=== PATIENT | female | born 1985 | race Caucasian/White ===

== ENCOUNTER 2025-06-12 08:03 | Emergency (ER) | payer OTHER, SELFPAY ==
[2025-06-12 08:08] VITALS: BP 139/78; PULSE 102; RESP 20; TEMP 37.1; O2SAT 100
--- OUTSIDE RECORDS SUMMARY | 2025-06-12 08:09 | XMS_ITS | Encounter Summary ---
Author Organization [facility] Address [address] [place] [address] Phone Care Team Providers Care Casual Shoe Inspector Name Role Phone Henry Ha MD Primary Care Provider [phone] Radha Morales APRN, FIRE BATTALION CHIEF Primary Care Provide r Reason for Visit * Reason Comments Medication Refill Encounter Details Date Type Department Care Team (Late st Contact Info) Description 02/12/2021 Refill [facility] - Family Medicine [facility] [address] [place] [address] Henry Ha MD [address] [place] [address] Medication Refill Social History Tobacco Use Types Packs/Day Years Used Date Smoking Tobacco: Never Smokeless Tobacco: Never Alcohol Use Standard Drinks/Week Comments Yes 0 (1 standard drink = 0.6 oz pur e alcohol) Rare PHQ-2 Answer Date Recorded Total Score - Questions 1-9 0 02/09 Sexually Active Control Partners Comments Yes Oral Contraceptive Male Comments No Sex and Gender Information Value Date Recorded Sex Assigned at Not on file Legal Sex Female 7:21 PM CDT Gender Identity Not on file Sexual Orientation Not on file Occupation Industry Job Start Date Job End Date Nurse Not on file Not on file Not on file documented as of this encounter Miscellaneous Notes * Telephone Encounter - Jennifer Ashley RN - 02/13/2021 8:33 AM CDT Medication failed the protocol, provider to review and approve the medication order if appropriate. Requested Prescriptions Pending Prescriptions Disp Refills Tri-Sprintec 0.18/0.215/0.25 MG-35 MCG Tablet [Pharmacy Med Name: TRI-SPRINTEC TABLETS 28S] 28 Tablet 11 Sig: TAKE 1 TABLET BY MOUTH DAILY [facility]ch Not Delegated - FACULTY RESEARCH ASSISTANT: Contraceptives Failed - 02/12/2021 7:17 PM Failed - This refill cannot be delegated Passed - Valid encounter within last 12 months Past Office Visits Recent Outpatient Visits 11 months ago Visit for annual health examination (Adult) [facility] - Henry Garcia MD 1 year ago Strep throat [facility] Henry Perez MD 2 years ago Well woman exam [facility] - Henry Garcia MD Upcoming Appointments MANAGER FLOAT - Recent and Past Visits Recent Visits Date Type Provider Dept 02/29/20 Office Visit Henry Ha MD [facility] Ra Showing recent visits within past 460 days with a meds authorizing provider and meeting all other requirements Future Appointments No visits were found meeting these conditions. Showing future appointments within next 90 days with a meds authorizing provider and meeting all other requirements Passed - Last BP in normal range BP Readings from Last 1 Encounters: 02/29/20 108/62 documented in this encounter Plan of Treatment Upcoming Encounters Date Type Department Care Team (Late st Contact Info) Description 04/19/2026 9:40 AM CDT [facility] [address] [place] [address] Radha Morales, PHOTOGRAPHIC EQUIPMENT MECHANIC, FIRE BATTALION CHIEF [address] [place] [address] documented as of this encounter Visit Diagnoses Diagnosis Acne, unspecified acne type documented in this encounter Additional Health Concerns Assessment Noted Time PHQ-9 Depression Total Score: 0 02/29/20 20 8:00 AM CDT documented as of this encounter Care Teams Casual Shoe Inspector Relationship Specialty Start Date End Date Henry Ha MD PCP - General Family Medicine 11/05/18 02/01/25 Radha Morales, PHOTOGRAPHIC EQUIPMENT MECHANIC, FIRE BATTALION CHIEF [address] [place] [address] PCP - General Advanced Practice Nurse 04/14/25 documented as of this encounter
--- OUTSIDE RECORDS SUMMARY | 2025-06-12 08:09 | XMS_ITS | Encounter Summary ---
Author Organization [facility] Address [address] [place] [address] Phone Care Team Providers Care Guide Tour Name Role Phone Radha Morales APRN, CNP Primary Care Provide r Encounter Details Date Type Department Care Team (Late st Contact Info) Description 04/29/2025 Results Follow-Up [facility] - Family Medicine - [place] [address] [place] [address] Radha Morales APRN, PRODUCTION EDITOR [address] [place] [address] HEPATITIS C ANTIBODY, LIPID PANEL, CMP (COMPREHENSIVE METABOLIC PANEL), Additional followed-up results: 4 Social History Tobacco Use Types Packs/Day Years Used Date Smoking Tobacco: Never Smokeless Tobacco: Never Alcohol Use Standard Drinks/Week Comments Yes 0 (1 standard drink = 0.6 oz pur e alcohol) Rare PHQ-2 Answer Date Recorded Total Score - Questions 1-9 0 12/2024 AUDIT-C Answer Date Recorded Q1: How often do you have a drink containing alc ohol? Never 04/15/2025 Average Number of Drinks Not on file 025 Frequency of Binge Drinking Not on file 12/2024 Education Answer Date Recorded What is the highest level of school you have completed or the highest degree you have received? 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 Not on file documented as of this encounter Plan of Treatment Upcoming Encounters Date Type Department Care Team (Late st Contact Info) Description 04/19/2026 9:40 AM CDT Office Visit [facility] [address] [place] [address] Radha Morales APRN, PRODUCTION EDITOR [address] [facility] [place] [address] documented as of this encounter Visit Diagnoses Not on filedocumented in this encounter Additional Health Concerns Assessment Noted Time PHQ-9 Depression Total Score: 0 04/15/20 10:34 AM CDT documented as of this encounter Care Teams Guide Tour Relationship Specialty Start Date End Date Radha Morales APRN, PRODUCTION EDITOR [address] [facility] [address] PCP - General Advanced Practice Nurse 04/14/25 documented as of this encounter
--- OUTSIDE RECORDS SUMMARY | 2025-06-12 08:09 | XMS_ITS | Encounter Summary ---
Author Organization [facility] Address [address] [place] [address] Phone Care Team Providers Care Display Specialist Name Role Phone Radha Morales APRN, ED Primary Care Provide r Encounter Details Date Type Department Care Team (Late st Contact Info) Description 04/15/2025 Results Follow-Up [facility] - Family Medicine [facility] [address] [place] [address] Radha Morales APRN, ASSISTANT LABORATORY DIRECTOR [address] [place] [address] CHRISTINA SCREENING DEBORAH W IMPL DIGITAL W CAD W AGUSTINA Social History Tobacco Use Types Packs/Day Years [...] on file documented as of this encounter Functional Status * Question Answer Date of Assessment Author Little interest or pleasure in doing things Not at all 04/15/2025 10:34 AM CDT DerikNovember Feeling down, depressed, or hopeless Not at all 12/2024 10:34 AM CDT DerikNovember * Over the past 2 weeks, how often have you been bothered by any of the following problems? Question Answer Date of Assessment Author Patient Health Questionnaire-2 Score 0 12/2024 10:34 AM CDT MoreNovember documented as of this encounter Plan of Treatment Upcoming Encounters Date Type Department Care Team (Late st Contact Info) Description 04/19/2026 9:40 AM CDT Office Visit [facility] - Family Medicine [facility] [address] [place] [address] Radha Morales, IMPLEMENTATION ANALYST, ASSISTANT LABORATORY DIRECTOR [address] [place] [address] documented as of this encounter Visit Diagnoses Not on filedocumented in this encounter Additional Health Concerns Assessment Noted Time PHQ-9 Depression Total Score: 0 04/15/20 10:34 AM CDT documented as of this encounter Care Teams Display Specialist Relationship Specialty Start Date End Date Radha Morales APRN, ASSISTANT LABORATORY DIRECTOR [address] [place] [address] PCP - General Advanced Practice Nurse 04/14/25 documented as of this encounter
--- OUTSIDE RECORDS SUMMARY | 2025-06-12 08:09 | XMS_ITS | Clinical Summary ---
Author Organization [facility] Address [address] [place] [address] Care Team Providers Care Receiving Clerk Name Role Phone Unknown, Provider Primary Care Provider Unavaila ble Source Comments [facility],non-owned Affiliates and Associated Physician Practices is amultiple site organization consisting of ambulatory clinics and hospital sitesin [place], [place], [place] and [place]. This disclosure is being madepursuant to the Care Everywhere program and may not contain all information available regarding this patient. Last updated 18.[facility] Allergies Active Allergy Reactions Criticality Noted Date Comments Sulfa Drugs Itching,Urticaria High 08/30/2014 Was told that as an she had an allergic reaction Medications * Be aware that medications may not be up to date on this document. Alwaysverify current medications with the patient. influenza vac types a & b pf (FLUVIRIN PRESERVATIVE FREE) 0.5 ML injection ADM 0.5ML IM UTD 7 Active Aolifzql-Gtz-Yf- FA (PRE- FORMULA) TABS Active sertraline (ZOLOFT) 50 MG tablet 8 Active ibuprofen (MOTRIN) 600 MG tablet Take 1 tablet by mouth every 6 hours as needed for Pain 50 tablet 8 Active Additional Information Patient not taking.Reported on 01/26/2019 norgestim-eth estrad triphasic (TRI-SPRINTEC) tablet Take 1 tablet by mouth once daily 1 packet 11 9 Active Active Problems Problem Noted Date Diagnosed Date Pap smear for cervical cancer screening 02/27/20 18 Overview (02/23/2019): Desires Nexplanon History of miscarriage 09/14/2014 Overview (12/25/2017): Overview: s/p D&C 08/2014 Resolved Problems Problem Noted Date Diagnosed Date Resolved Date (normal spontaneous vaginal delivery) 02/26/2018 01/26/2019 Supervision of normal pregna ncy in third trimester 12/11/2017 02/26/2018 Depression affecting 12/11/2017 01/26/2019 Elevated glucose level 11/06/201702/26 Overview (12/25/2017): Overview: Passed GTT Short interval between pregn ancies affecting in first trimester, antepartum 07/17/2017 02/26/2018 Supervision of normal pregna ncy in second trimester 06/20/2017 02/26/2018 Overview (01/01/2018): Overview: Dated per 8 wk US O+ antibody screen neg Hgb: 12.9 plt 271 RPR neg Hep B neg Rubella immune Pap normal Chl/liudmlia neg/neg Urine cx: neg SS in process GBS Neg (spontaneous vaginal delivery) 01/01/2018 care following vaginal delivery 01/01/2018 Immunizations Immunization Administration Dates Next Due INFLUENZA VACCINE, TRIV. (AF LURIA, FLUZONE TRIVALENT; 6MO+) (IIV3) 05/11/2018 Covid [employer] primary monoval ent 12+ yr 0.3mL Purple cap 08/29/2020,08/08/2020 DTP 01/23/1999, 0,07/07/1986,1985,04/14/1986,1985,1985,1 08/25/1984 FLU VACCINE TRI IIV3 SPLIT P F IM (FLUVIRIN) 07/01/2017 HEP B VACCINE, PED/ADOL 02/24/2002,10/21/2001, INFLUENZA VACCINE 05/11/2018,05/11/2016 MMR 03/13/1993,10/11/1986 POLIO OPV 03/13/1990, 7,04/14/1986,1985,1985 TDAP (7yrs+) 11/06/2017,08/14/2016 Family History Medical History Relation Name Comments Cancer - Breast Mother lumpectomy Relation Name Status Comments Mother Social History Tobacco Use Types Packs/Day Years Used Date Smoking Tobacco: Never Smokeless Tobacco: Never Alcohol Use Standard Drinks/Week Comments No 0 (1 standard drink = 0.6 oz pur e alcohol) Comments No Sex and Gender Information Value Date Recorded Sex Assigned at Not on file Legal Sex Female 11:43 AM TAXATION ECONOMIST Gender Identity Not on file Sexual Orientation Not on file Last Filed Vital Signs Vital Sign Reading Time Taken Comments Blood Pressure 120/70 01/26/2019 3:07 PM CDT Pulse 72 01/18/2018 3:45 PM CDT Temperature 36.7 C (98.1 F) 01/18/2018 3:45 PM CDT Respiratory Rate 16 01/18/2018 3:45 PM CDT Oxygen Saturation 99% 01/17/2018 2:22 PM CDT Inhaled Oxygen Concentration - - Weight 98 kg (216 lb) 01/26/2019 3:07 PM CDT Height 167.6 cm (5' 6) 01/26/2019 3:07 PM CDT Body Mass Index 34.86 01/26/2019 3:07 PM CDT Plan of Treatment Health Maintenance Due Date Last Done Comments LIPID TESTING 1985 MAMMOGRAM 1985 HEPATITIS C SCREENING 03/27/2003 HPV VACCINE (1 - 3-dose SCDM series) 2012 DEPRESSION SCREENING 08/11/2024 COVID-19 VACCINE ( season) 2025 08/29/2020, 08/08/2020 INFLUENZA VACCINE (#1) 2025 8, 05/11/2018, 07/01/2017, Additional history exists DTAP/TDAP/TD VACCINES (9 - Td or Tdap) 11/07/2027 11/06/2017, 08/14/2016, 01/23/1999, Additional history exists ZOSTER VACCINE (1 of 2) 2035 HEPATITIS B VACCINE Completed 02/24/2002, 10/21/2001, 09/14/2001 HIV SCREENING Completed 07/10/2017, 03/04/2016 HIB VACCINE Aged Out No longer eligi ble based on patient's age to complete this topic MENINGOCOCCAL (Group B) VACCINE SHARED DECISION-MAKING Aged Out No longer eligible based on patient's age to complete this topic MENINGOCOCCAL GROUPS A/C/Y/W VACCINE Aged Out No longer eligible based on patient's age to complete this topic PNEUMOCOCCAL VACCINE Aged Out No long er eligible based on patient's age to complete this topic Procedures Procedure Name Priority Date/Time Associated Diagnosis Comments HIV-1 HIV-2 ANTIBODY W REFLX Routine 07/10/2017 8:56 AM TAXATION ECONOMIST from Last 3 Months or Most Recently Relevant to Health Maintenance Results * HIV-1 HIV-2 ANTIBODY W REFLX (07/10/2017 8:56 AM TAXATION ECONOMIST) HIV 1 Antibody Negative Negative [facility] ([facility]) HIV-2 Antibody Negative Negative [facility] ([facility]) Interpretation [facility] ([facility]) Comment: Negative for HIV-1 and HIV-2 antibodies See RNA Reflex. Blood specimen (specimen) BLOOD SPECIMEN / Unknown 07/10/2017 8:56 AM TAXATION ECONOMIST 07/10/2017 Narrative [facility] ([facility]) - 07/15/2017 7:12 AM TAXATION ECONOMIST Performed at: [facility] [address] [place], [place] [id number] Aquarist: Ranjan Moseley PhD, Phone: [phone] Carmela Jhaveri CHEMICAL EQUIPMENT REPAIRER-[facility] - SEROLOGY ORDERAB LES Final Result [facility] ([facility]) [address] [place] [address], [facility] from Last 3 Months or Most Recently Relevant to Health Maintenance Insurance ANTHEM Advance Directives * Full Code (Latest Code Status on File) Date Activated Date Inactivated Comments 01/17/2018 11:24 AM 01/18/2018 9:28 PM * Full Code Date Activated Date Inactivated Comments 01/17/2018 11:04 AM 01/17/2018 11:24 AM * Full Code Date Activated Date Inactivated Comments 11/01/2016 9:17 AM 11/02/2016 2:43 PM * Full Code Date Activated Date Inactivated Comments 11/01/2016 4:03 AM 11/01/2016 9:17 AM * Full Code Date Activated Date Inactivated Comments 07/16/2016 5:50 PM 07/16/2016 7:03 PM Care Teams Receiving Clerk Relationship Specialty Start Date End Date Unknown, Provider PCP - General 11/24/17
--- OUTSIDE RECORDS SUMMARY | 2025-06-12 08:09 | XMS_ITS | Clinical Summary ---
Author Organization [facility] Address [address] [place] [address] Phone Care Team Providers Care Program Professional Name Role Phone Radha Morales APRN, CNP Primary Care Provide r Allergies Active Allergy Reactions Criticality Noted Date Comments Sulfa Antibiotics Hives,Itching High 08/30/2014 Was told that as an she had an allergic reaction Medications No known medications Active Problems Problem Noted Date Diagnosed Date Acne 02/29/2020 Visit for annual health examination (Adult) 02/09 Pap smear for cervical cancer screening 11/06/19 Well woman exam 11/05/2018 History of miscarriage 09/14/2014 Overview (11/05/2018): s/p D&C 08/2014 Resolved Problems Problem Noted Date Diagnosed Date Resolved Date Strep throat 08/03/2019 02/29/2020 (normal spontaneous vaginal delivery) 02/26/2018 11/05/2018 Depression affecting 12/11/2017 11/05/2018 Encounters Date Type Department Care Team Description 04/29/2025 Results Follow-Up [facility] - Family Medicine - [place] [address] [phone] Radha Morales APRN, CNP HEPATITIS C ANTIBODY, LIPID PANEL, CMP (COMPREHENSIVE METABOLIC PANEL), Additional followed-up results: 4 04/27/2025 8:40 AM CDT Lab [facility] [address] [address] Lab, [place] Lab/Ancillary Encounter for well adult exam without abnormal findings; Encounter for hepatitis C screening test for low risk patient; Screening for lipid disorders; Screening for diabetes mellitus; Family history of high cholesterol Discharge Disposition: Discharged to home or Selfcare 04/27/2025 Travel 04/15/2025 10:40 AM CDT Office Visit [facility] [place] [address] Radha Morales, BOTTLED BEVERAGE INSPECTOR, AGRICULTURAL TECHNICAL OFFICER Encounter for well adult exam without abnormal findings (Primary Dx); Adult BMI 34.0-34.9 kg/sq m; Screening for diabetes mellitus; Family history of diabetes mellitus; Screening for lipid disorders; Encounter for hepatitis C screening test for low risk patient; Need for COVID-19 vaccine; Sleep disturbance; Family history of high cholesterol Discharge Disposition: Discharged to home or Selfcare 04/15/2025 Results Follow-Up [facility] [address] [place] [address] Radha Morales, BOTTLED BEVERAGE INSPECTOR, AGRICULTURAL TECHNICAL OFFICER CHRISTINA SCREENING DEBORAH W IMPL DIGITAL W CAD W AGUSTINA 04/14/2025 12:16 PM CDT - 04/14/2025 11:59 PM CDT Hospital Encounter [facility] Mammography [address] [place] [address] Mammo Self Referred, [facility] Discharge Disposition: Discharged to home or Selfcare 04/14/2025 Travel 04/12/2025 Telephone [facility] [address] [place] [address] Radha Morales, BOTTLED BEVERAGE INSPECTOR, AGRICULTURAL TECHNICAL OFFICER from Last 3 Months Immunizations Immunization Administration Dates Next Due DTP Vaccine 01/23/1999, 0,07/07/1986,1985,04/14/1986,1985,1985,1 08/25/1984 Hepatitis B Vaccine, Pediatric/adolescent 02/24/2002,10/21/2001,09/14/2001 Hib Vaccine,unspecified Formulation 07/16/1988 Influenza Vaccine 07/01/2017 Influenza Vaccine greater than 3 yrs 05/11/2018 Influenza Vaccine,unspecifie d Formulation 05/11/2016 Influenza, Seasonal, Injecta ble, Undefined 05/11/2018 Influenza,Split Virus,Trivalent,Injectable,PF 06/21/2024 MMR Vaccine 03/13/1993,10/11/1986 OPV 03/13/1990, 7,04/14/1986,1985,1985 TDAP Vaccine 11/06/2017,08/11/2016 Family History Medical History Relation Name Comments No Known Problems Brother No Known Problems Father No Known Problems Maternal Grandfather No Known Problems Maternal Grandmother Breast Cancer Mother Hypertension Mother No Known Problems Paternal Grandfather Diabetes Paternal Grandmother High Cholesterol Sister 1 No Known Problems Sister 2 Relation Name Status Comments Brother Alive Father Alive Maternal Grandfather Alive Maternal Grandmother Alive Mother Alive Paternal Grandfather Paternal Grandmother Sister 1 Alive Sister 2 Alive Social History Tobacco Use Types Packs/Day Years Used Date Smoking Tobacco: Never Smokeless Tobacco: Never Tobacco Cessation:Counseling Given: Yes Alcohol Use Standard Drinks/Week Comments Yes 0 [...] file Not on file Not on file Last Filed Vital Signs Vital Sign Reading Time Taken Comments Blood Pressure 116/84 04/15/2025 10:35 AM CDT Pulse 81 04/15/2025 10:35 AM CDT Temperature 36.5 C (97.7 F) 04/15/2025 10:35 AM CDT Respiratory Rate 12 04/15/2025 10:35 AM CDT Oxygen Saturation 98% 04/15/2025 10:35 AM CDT Inhaled Oxygen Concentration - - Weight 96.8 kg (213 lb 4.8 oz) 04/15/2025 10:35 AM CDT Height 167.6 cm (5' 6) 04/15/2025 10:35 AM CDT Body Mass Index 34.43 04/15/2025 10:35 AM CDT Plan of Treatment Upcoming Encounters Date Type Department Care Team (Late st Contact Info) Description 04/19/2026 9:40 AM CDT Office Visit [facility] - Family Medicine [facility] [address] [place] [address] Radha Morales, BOTTLED BEVERAGE INSPECTOR, AGRICULTURAL TECHNICAL OFFICER [address] [place] [address] Health Maintenance Due Date Last Done Comments Influenza Immunization (#1) 04/11/202506/11, 05/11/2018, 05/11/2018, Additional history exists SARS-COV-2 Immunization ( season) 2025 06/01/2021, 08/29/2020, 08/08/2020 Pap Smear 11/07/2025 11/07/2022, 11/05/2018 Mammogram 04/14/2026 04/14/2025 Human Papillomavirus (HPV) Immunization (1 - 3-dose SCDM series) 04/15/2026 Postponed from 2012 (Patient Temporarily Declines) DTaP/Tdap/Td Immunization (9 - Td or Tdap) 11/07/2027 11/06/2017, 08/11/2016, 01/23/1999, Additional history exists Td Immunization Every 10 Years (Adults With 1 Tdap) 11/07/2027 11/06/2017, 08/11/2016 Cervical Cancer Screening (CCS) 11/08/2027 HPV/Cotest 11/08/2027 11/07/2022 Respiratory Syncytial Virus (RSV) Immunization (Adult) (1 - 1-dose 75+ series) 2060 Hepatitis B Immunization Completed 002, 10/21/2001, 09/14/2001 Discussion re Starting/Frequency of Mammograms Completed 04/14/2025 Hepatitis C Virus (HCV) Screening Completed 04/27/2025 Meningococcal Immunization (ACWY) Aged Out No longer eligible b ased on patient's age to complete this topic Pneumococcal Immunization Combined Aged Out No longer eligible b ased on patient's age to complete this topic Rotavirus Immunization Aged Out No lo nger eligible based on patient's age to complete this topic Procedures Procedure Name Priority Date/Time Associated Diagnosis Comments CBC WITH AUTO DIFFERENTIAL Routine 04/27/2025 9:01 AM CDT Encounter for well adult exam without abnormal findings APOLIPOPROTEIN B, SERUM, GONZALEZ APOLB Routine 04/27/2025 9:01 AM CDT Screening for lipid disorders Family history of high cholesterol LIPOPROTEIN (A) Routine 04/27/2025 9:01 AM CDT Screening for lipid disorders Family history of high cholesterol HEMOGLOBIN A1C W/ ESTIMATED GLUCOSE Routine 04/27/2025 9:01 AM CDT Encounter for well adult exam without abnormal findings Screening for diabetes mellitus CMP (COMPREHENSIVE METABOLIC PANEL) Routine 04/27/2025 9:01 AM CDT Encounter for well adult exam without abnormal findings COMPLETE BLOOD COUNT (CBC) WITH DIFF Routine 04/27/2025 9:01 AM CDT Encounter for well adult exam without abnormal findings LIPID PANEL Routine 04/27/2025 9:01 AM CDT Encounter for well adult exam without abnormal findings Screening for lipid disorders HEPATITIS C ANTIBODY Routine 04/27/2025 9:01 AM CDT Encounter for well adult exam without abnormal findings Encounter for hepatitis C screening test for low risk patient CHRISTINA SCREENING DEBORAH W IMPL DIGITAL W CAD W AGUSTINA Routine 04/14/2025 12:58 PM CDT Visit for screening mammogram HUMAN PAPILLOMA VIRUS (HPV) Routine 11/07/2022 11:37 AM CDT Encounter for screening for human papillomavirus (HPV) PATHOLOGY CYTOLOGY ACTIVE DIRECTORY SPECIALIST Routine 11:37 AM CDT Encounter for gynecological examination without abnormal finding Screening for malignant neoplasm of cervix from Last 3 Months or Most Recently Relevant to Health Maintenance Results * HEMOGLOBIN A1C W/ ESTIMATED GLUCOSE (04/27/2025 9:01 AM CDT) HGB-A1C 4.8 4.0 - 6.0 % 04/27/2025 1:14 PM CDT [facility] Est Average Glucose 91.1 mg/dL 04/27/2025 1:14 PM CDT [facility] Blood Venipuncture / Unknown 04/27/2025 9:01 AM CDT 04/27/2025 9:01 AM CDT Narrative [facility] - 04/27/2025 1:14 PM CDT HEMOGLOBIN A1C: DIABETIC PATIENTS: WELL-CONTROLLED: 6.2 - 7.0 INTERMEDIATE WELL-CONTROLLED: 7.0 - 9.0 POORLY-CONTROLLED: >9.0 Specimens containing greater than 5% of Hemoglobin F may result in lower than expected % HbA1C results. Radha Morales APRN, AGRICULTURAL TECHNICAL OFFICER CHEMISTRY ORDERABLES Final Result [facility] [address] [place] [address] * (ABNORMAL) APOLIPOPROTEIN B, SERUM, GONZALEZ APOLB (04/27/2025 9:01 AM CDT) APOLB, APOLIPOPROTEIN B,S 21(L) mg/dL 04/29/2025 1:38 PM CDT [facility] Comment: Extremely low ApoB may indicate an underlying genetic disorder such as abetalipoproteinemia. REFERENCE VALUE Desirable: <90 Above Desirable: 90-99 Borderline high: 100-119 High: 120-139 Very high: > or = 140 Test Performed by: [address] [address] [address] Magistrate: Kimmie Lara Ph.D.; CLIA# [id number] Blood Venipuncture / Unknown 04/27/2025 9:01 AM CDT 04/27/2025 9:01 AM CDT Radha Morales APRN, CNP LAB SEND OUTS Final Result [facility] [place] * CBC WITH AUTO DIFFERENTIAL (04/27/2025 9:01 AM CDT) WBC 7.39 4.00 - 12.00 10(3)/mcL 04/27/2025 12:36 PM CDT [facility] RBC 4.61 3.80 - 5.30 10(6)/[facility] 04/27/2025 12:36 PM CDT [facility] HEMOGLOBIN (HGB) 13.1 12.0 - 15.8 g/dL 04/27/2025 12:36 PM CDT [facility] HEMATOCRIT (HCT) 39.0 36.0 - 47.0 % 04/27/2025 12:36 PM CDT [facility] MCV 84.6 82.0 - 96.0 fL 04/27/2025 12:36 PM CDT [facility] MCH 28.4 26.0 - 34.0 pg 04/27/2025 12:36 PM CDT [facility] MCHC 33.6 31.0 - 36.0 g/dL 04/27/2025 12:36 PM CDT [facility] PLATELET COUNT 328 140 - 440 10(3)/[facility] 04/27/2025 12:36 PM CDT [facility] RDW 12.6 11.8 - 15.5 % 04/27/2025 12:36 PM CDT [facility] MPV 10.1 9.7 - 12.4 fL 04/27/2025 12:36 PM CDT [facility] NEUTROPHILS 64.6 47.0 - 73.0 % 04/27/2025 12:36 PM CDT [facility] LYMPHOCYTES 24.2 18.0 - 42.0 % 04/27/2025 12:36 PM CDT [facility] MONOCYTES 6.1 4.0 - 12.0 % 04/27/2025 12:36 PM CDT [facility] EOSINOPHILS 3.8 0.0 - 5.0 % 04/27/2025 12:36 PM CDT [facility] BASOPHILS 0.9 0.0 - 1.0 % 04/27/2025 12:36 PM CDT [facility] IMMATURE GRANULOCYTE 0.4 0.0 - 0.4 % 04/27/2025 12:36 PM CDT [facility] ABSOLUTE NEUTROPHILS 4.77 1.60 - 7.70 10(3)/[facility] 04/27/2025 12:36 PM CDT [facility] ABSOLUTE LYMPHOCYTES 1.79 1.30 - 3.20 10(3)/[facility] 04/27/2025 12:36 PM CDT [facility] ABSOLUTE MONOCYTES 0.45 0.20 - 1.00 10(3)/[facility] 04/27/2025 12:36 PM CDT [facility] ABSOLUTE EOSINOPHIL 0.28 0.00 - 0.40 10(3)/[facility] 04/27/2025 12:36 PM CDT [facility] ABSOLUTE BASOPHILS 0.07 0.00 - 0.10 10(3)/[facility] 04/27/2025 12:36 PM CDT [facility] ABSOLUTE IMMATURE GRANULOCYTE 0.03 0.00 - 0.03 10 (3) mcL. 04/27/2025 12:36 PM CDT [facility] NRBC PER 100 WBC 0 09/17/20 25 12:36 PM CDT [facility] Blood Venipuncture / Unknown 04/27/2025 9:01 AM CDT 04/27/2025 9:01 AM CDT Radha Morales BOTTLED BEVERAGE INSPECTOR, AGRICULTURAL TECHNICAL OFFICER HEMATOLOGY ORDERABLES Final Result [facility] [address] [place] [address] * LIPOPROTEIN (A) (04/27/2025 9:01 AM CDT) LIPOPROTEIN(a) 10 <31 mg/dL 04/27/2025 10:19 PM CDT [facility] Blood Venipuncture / Unknown 04/27/2025 9:01 AM CDT 04/27/2025 9:01 AM CDT Radha Morales APRN, AGRICULTURAL TECHNICAL OFFICER CHEMISTRY ORDERABLES Final Result [facility] [address] [place] [address], * (ABNORMAL) LIPID PANEL (04/27/2025 9:01 AM CDT) CHOLESTEROL 89 <200 mg/dL 04/27/2025 1:23 PM CDT [facility] TRIGLYCERIDES 26 <150 mg/dL 04/27/2025 1:23 PM CDT [facility] HDL CHOLESTEROL 61 >40 mg/dL 1:23 PM CDT [facility] LDL 23 <130 mg/dL 04/27/2025 1:23 PM CDT [facility] VLDL 5(L) 10 - 50 mg/dL 04/27/2025 1:23 PM CDT [facility] CHOL/HDL RATIO 1.5 0.0 - 4.4 04/27/2025 1:23 PM CDT [facility] NON-HDL CHOLESTEROL 28 <130 mg/dL 04/27/2025 1:23 PM CDT [facility] IS THE PATIENT REQUIRED TO BE FASTING? Yes 04/27/2025 1:23 PM CDT [facility] HAS THE PATIENT BEEN FASTING? Yes 04/27/2025 1:23 PM CDT [facility] Blood Venipuncture / Unknown 04/27/2025 9:01 AM CDT 04/27/2025 9:01 AM CDT Radha Morales APRN, AGRICULTURAL TECHNICAL OFFICER CHEMISTRY ORDERABLES Final Result [facility] [address] [facility] [place] [address] * HEPATITIS C ANTIBODY (04/27/2025 9:01 AM CDT) hepatitis C antibody 0.07 <1 S/CO 04/27/2025 10:33 PM CDT [facility] Comment: Signal/Cutoff ratio < 0.79 is Nondetected Signal/Cutoff ratio 0.80-0.99 is Grayzone Signal/Cutoff ratio > 0.99 is Detected Supplemental assays are recommended if signal/cutoff ratio is >/=1.00. Signal/cutoff ratio result >/= 5.00 is 97% predictive of positivity for recombinant immunoblot assay (RIBA) and will be reported to the [place] Department of Public Health as required. Blood Venipuncture / Unknown 04/27/2025 9:01 AM CDT 04/27/2025 9:01 AM CDT Radha Morales BOTTLED BEVERAGE INSPECTOR, AGRICULTURAL TECHNICAL OFFICER CHEMISTRY ORDERABLES Final Result [facility] [address] [place] [address], [place] * (ABNORMAL) CMP (COMPREHENSIVE METABOLIC PANEL) (04/27/2025 9:01 AM CDT) SODIUM 139 136 - 145 mmol/L 04/27/2025 1:23 PM CDT [facility] POTASSIUM 3.9 3.5 - 5.1 mmol/L 04/27/2025 1:23 PM CDT [facility] CHLORIDE 106 98 - 107 mmol/L 04/27/2025 1:23 PM T [facility] CO2, VENOUS 23 22 - 30 mmol/L 04/27/2025 1:23 PM CDT [facility] ANION GAP 13.9 <18.0 mmol/L 04/27/2025 1:23 PM CDT [facility] GLUCOSE 90 70 - 99 mg/dL 04/27/2025 1:23 PM T [facility] BUN 8 5 - 18 mg/dL 04/27/2025 1:23 PM T [facility] CREATININE, BLOOD 0.58(L) 0.60 - 1.00 mg/dL 04/27/2025 1:23 PM CDT [facility] BUN/CREATININE RATIO 14 12 - 20 ratio 04/27/2025 1:23 PM T [facility] TOTAL PROTEIN 6.8 6.0 - 8.0 g/dL 04/27/2025 1:23 PM T [facility] ALBUMIN 4.4 3.5 - 5.0 g/dL 04/27/2025 1:23 PM T [facility] A/G RATIO 1.8 1.0 - 2.2 04/27/2025 1:23 PM CDT [facility] CALCIUM 9.0 8.7 - 10.5 mg/dL 04/27/2025 1:23 PM T [facility] T BILI 1.5(H) 0.2 - 1.2 mg/dL 04/27/2025 1:23 PM CDT [facility] SGOT (AST) 20 <43 U/L 04/27/2025 1:23 PM CDT [facility] SGPT (ALT) 20 <56 U/L 04/27/2025 1:23 PM CDT [facility] ALKALINE PHOSPHATASE 60 40 - 150 U/L 04/27/2025 1:23 PM CDT [facility] IS THE PATIENT REQUIRED TO BE FASTING? No 04/27/2025 1:23 PM CDT [facility] GFR, ESTIMATED >60 >=60 04/27/2025 1:23 PM CDT [facility] Comment: Creatinine Clearance is the preferred criteria for selecting drug dose adjustments in renally impaired patients. The GFR is provided as additional pertinent clinical information. GFR is reported in mL/min/1.73 sq m. Calculation based on the 2020 Chronic Kidney Disease Epidemiology Collaboration (CKD-EPI) equation refit without adjustment for race. GFR, EST. >60 >=60 025 1:23 PM CDT [facility] Comment: Creatinine Clearance is the preferred criteria for selecting drug dose adjustments in renally impaired patients. The GFR is provided as additional pertinent clinical information. GFR is reported in mL/min/1.73 sq m. Calculation based on the 2009 Chronic Kidney Disease Epidemiology Collaboration (CKD-EPI). GFR, EST. NONAFRICAN >60 >=60 04/27/2025 1:23 PM CDT [facility] Comment: Creatinine Clearance is the preferred criteria for selecting drug dose adjustments in renally impaired patients. The GFR is provided as additional pertinent clinical information. GFR is reported in mL/min/1.73 sq m. Calculation based on the 2009 Chronic Kidney Disease Epidemiology Collaboration (CKD-EPI). Blood Venipuncture / Unknown 04/27/2025 9:01 AM CDT 04/27/2025 9:01 AM CDT us Radha Morales BOTTLED BEVERAGE INSPECTOR, AGRICULTURAL TECHNICAL OFFICER CHEMISTRY ORDERABLES Final Result [facility] [address] [place] [address] * CHRISTINA SCREENING DEBORAH W IMPL DIGITAL W CAD W GAUSTINA (04/14/2025 12:58 PM CDT) Anatomical Region Laterality Modality breast Bilateral Mammography 04/14/2025 12:5 8 PM CDT Impressions 04/14/2025 1:18 PM CDT IMPRESSION: No mammographic evidence of malignancy. RECOMMENDATION: If there is no interval change in the clinical breast examination, the patient can return in one year for annual screening mammography. Narrative 04/14/2025 1:18 PM CDT Exam: [facility] SCREENING DEBORAH W IMPL DIGITAL W CAD W AGUSTINA. Direct digital imaging using CAD. Tomosynthesis images were obtained and reviewed. Clinical History: Screening. No current complaints. Comparison: None. Baseline. Technique: Two standard digital views of both breasts were performed and reviewed with the aid of R2 CAD. Tomosynthesis images were obtained and reviewed. Findings: The breasts are heterogeneously dense, which may obscure masses. Bilateral retropectoral silicone implants. There are no suspicious masses, microcalcifications or areas of nonsurgical architectural distortion. BIRADS 2: Benign Procedure Note Ildefonso Tabor MD - 04/14/2025 Exam: [facility] SCREENING DEBORAH W IMPL DIGITAL W CAD W AGUSTINA. Direct digitalimaging using CAD. Tomosynthesis images were obtained and reviewed. Clinical History: Screening. No current complaints. Comparison: None. Baseline. Technique: Two standard digital views of both breasts were performed andreviewed with the aid of R2 CAD. Tomosynthesis images were obtained andreviewed. Findings: The breasts are heterogeneously dense, which may obscure masses. Bilateral retropectoral silicone implants. There are no suspicious masses, microcalcifications or areas ofnonsurgical architectural distortion. BIRADS 2: Benign IMPRESSION: No mammographic evidence of malignancy. RECOMMENDATION: If there is no interval change in the clinical breastexamination, the patient can return in one year for annual screeningmammography. us Radha Morales APRN, ED IMG MAMMO ORDERABLES Final Result * PATHOLOGY CYTOLOGY ACTIVE DIRECTORY SPECIALIST (11/07/2022 11:37 AM CDT) SPECIMEN ADEQUACY Satisfactory for evaluation. Endocervical/transf ormation zone component is present. 11/18/2022 4:02 PM CDT [facility] DESCRIPTIVE DIAGNOSIS NEGATIVE FOR INTRAEPITHELIAL LESIONS OR MALIGNANCY. 11/18/2022 4:02 PM CDT [facility] at 1602 CDT Automated Examination Analysis of this sample has been assisted by an automated imaging and review system ([employer] System, [employer], [place], [place]). This case is further evaluated and finalized by a construction coordinator and/or pathologist. 11/18/2022 4:02 PM CDT [facility] Disclaimer The PAP smear is a screening test designed to detect cancerous or precancerous cells of the uterine cervix. It is one of the best means available for detection of cervical cancer but still carries an inherent false-negative rate. The consequences of a false-negative PAP result can be minimized by adhering to current screening guidelines. The following are general guidelines recommended by the ACS, ASCP, ASCCP, and ACOG: PAP testing is recommended every three years for women 21-29, Co-Testing, a PAP test in conjunction with an HPV (Human Papillomavirus) test for women ages 30-65, and no PAP or HPV testing for women under the age of 21 or older than 65 unless clinically indicated. 11/18/2022 4:02 PM CDT [facility] Other CERVIX UTERI STRUCTURE / Unknown Non-Phlebotomy Collection / Unknown 11/07/2022 11:37 AM CDT 11/07/2022 11:37 AM CDT us Henry Ha MD PATHOLOGY/CYTOLOGY ORDERABLES [facility] Result [facility] [address] [place] [address], * HUMAN PAPILLOMA VIRUS (HPV) (11/07/2022 11:37 AM CDT) HPV OTHER HIGH RISK TYPES, PCR NEGATIVE NEGATIVE 11/08/2022 3:28 PM CDT [facility] Comment: The following Other High Risk types were not detected: 31, 33, 35, 39, 45, 51, 52, 56, 58, 59, 66, and 68. A negative high-risk HPV result does not exclude the possibility of future cytologic HSIL or underlying CIN2-3 or cancer. The presence of PCR inhibitors may cause false negative or invalid results. If concentrations of whole blood in the sample exceed 1.5% (dark red or brown coloration) in PreservCyt solution, there is a likelihood of obtaining a false-negative result. HPV TYPE 16 NEGATIVE NEGATIVE 11/08/2022 3:28 PM CDT [facility] Comment: A negative high-risk HPV result does not exclude the possibility of future cytologic HSIL or underlying CIN2-3 or cancer. The presence of PCR inhibitors may cause false negative or invalid results. If concentrations of whole blood in the sample exceed 1.5% (dark red or brown coloration) in PreservCyt solution, there is a likelihood of obtaining a false-negative result. HPV TYPE 18 NEGATIVE NEGATIVE 11/08/2022 3:28 PM CDT [facility] Comment: A negative high-risk HPV result does not exclude the possibility of future cytologic HSIL or underlying CIN2-3 or cancer. The presence of PCR inhibitors may cause false negative or invalid results. If concentrations of whole blood in the sample exceed 1.5% (dark red or brown coloration) in PreservCyt solution, there is a likelihood of obtaining a false-negative result. HPV ORDER BE USED FOR SCREENING OR DIAGNOSTIC SCREENING 11/08/2022 3:28 PM CDT [facility] Other Non-Phlebotomy Collection / Unknown 11/07/2022 11:37 AM CDT 11/07/2022 11:37 AM CDT Narrative [facility] - 11/08/2022 3:28 PM CDT Performed by Real-Time Polymerase Chain Reaction (PCR) on the [employer] 4800. This assay has been validated for use with post-aliquot samples from the [employer] T5000 processor. us Henry Ha MD LAB SEND OUTS Final Result [facility] [address] [place] [address], [facility] [address] [place] [address] from Last 3 Months or Most Recently Relevant to Health Maintenance Insurance [facility] Care Teams Program Professional Relationship Specialty Start Date End Date Radha Morales APRN, AGRICULTURAL TECHNICAL OFFICER [address] [place] [address] PCP - General Advanced Practice Nurse 04/14/25
--- OUTSIDE RECORDS SUMMARY | 2025-06-12 08:09 | XMS_ITS | Clinical Summary ---
Author Organization [facility] Address [address] [place] [address] Care Team Providers Care Talent Coordinator Name Role Phone Naveen Whittaker MD Primary Care Provider + Pari Gallegos DO Unavailable Allergies Active Allergy Reactions Criticality Noted Date Comments Sulfa (Sulfonamide Antibiotics) Hives,Itching,Urticari a High 08/30/2014 Was told that as an infant she had an allergic reaction Medications oxyCODONE-aceta minophen (PERCOCET) 5-325 mg per tabletIndicatio ns:Pain Take 1-2 tablets by mouth every 4 (four) hours as needed for pain 15 tablet 04/08/2023 Active docusate sodium (COLACE) 100 mg capsuleIndicati ons:constipatio n Take 1 capsule (100 mg total) by mouth 2 (two) times a day with a glass of water 60 capsule 04/08/2023 Active Active Problems Problem Noted Date Diagnosed Date Request for sterilization 04/01/2023 Surgical History Surgery Date Site/Laterality Comments DILATION AND CURETTAGE OF UTERUS COMBINED AUGMENTATION MAMMAPLASTY AND ABDOMINOPLASTY Medical History Medical History Date Comments Obesity Social History Tobacco Use Types Packs/Day Years Used Date Smoking Tobacco: Never Smokeless Tobacco: Never Tobacco Cessation:Counseling Given: Not Answered Alcohol Use Standard Drinks/Week Comments Yes 0 (1 standard drink = 0.6 oz pur e alcohol) 1x year AUDIT-C Answer Date Recorded Frequency of Alcohol Consumption Not on file 04/01/2023 Q2: How many drinks containi ng alcohol do you have on a typical day when you are drinking? Patient does not drink Frequency of Binge Drinking Not on file 03/12 Personal Safety Answer Date Recorded Have you ever been in or are you currently in a harmful physical or emotional relationship or is someone making you feel afraid or unsafe? 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 Gender Identity Not on file Sexual Orientation Not on file Occupation Industry Job Start Date Job End Date Not on file Not on file Not on file Not on file Obstetrics History Para Term AB IAB SAB Ectopic Multiple Livin g Live Births 7 6 6 1 6 6 Date Outcome GA Total Labor Labor//3rd Weight Sex Type Anes PTL Bianca A1 A5 Name Clin AB 2005 Term 37w 0d 3.118 kg (6 lb 14 oz) F Vagina l Livin g Complications:None 2006 Term 38w 0d 3.771 kg (8 lb 5 oz) M Vagina l Livin g Complications:None 2008 Term 40w 0d 4.167 kg (9 lb 3 oz) M Vagina l Livin g Complications:None 2009 Term 41w 0d 4.026 kg (8 lb 14 oz) F Vagina l Livin g Complications:None 2016 Term 39w 0d 0h 07m 0h 07m 3.57 kg (7 lb 13.9 oz) M Vag-Sp ont Epidur al Livin g 8 8 BRENDA HINKLEBA BY NEGRITA Chaney MD Complications:None Delivery Location:[facility] 2017 Term 38w 4d 0h 10m 0h 06m/0h 04m 3.97 kg (8 lb 12 oz) F Vag-Sp ont Epidur al N Livin g 7 9 BRENDA HINKLE BA BY NAPOLEON LEWIS CNM Complications:None Delivery Location:[facility] Last Filed Vital Signs Vital Sign Reading Time Taken Comments Blood Pressure 122/74 04/15/2023 9:14 AM CDT Pulse 72 04/08/2023 11:15 AM CDT Temperature 36.2 C (97.2 F) 04/08/2023 11:15 AM CDT Respiratory Rate 18 04/08/2023 11:1 5 AM CDT Oxygen Saturation 98% 04/08/2023 11: 15 AM CDT Inhaled Oxygen Concentration - - Weight 101.7 kg (224 lb 3.2 oz) 04/15/2023 9:14 AM CDT Height 167.6 cm (5' 6) 04/08/2023 6:40 AM CDT Body Mass Index 36.19 04/08/2023 6:40 AM CDT Plan of Treatment Health Maintenance Due Date Last Done Comments Breast Cancer Screening-Mammogram 1985 Cervical Cancer Screening 1985 Depression Screening 1985 Hepatitis C Screening 1985 Varicella Vaccines (1 of 2 - 13+ 2-dose series) 1998 Regular Well Visit/Exam 18-64 2003 HPV Vaccines (1 - 3-dose SCDM series) 2012 Covid-19 Vaccine ( season) 2025 06/01/2021, 08/29/2020, 08/08/2020 Influenza Vaccine (#1) 2025 8, 05/11/2018, 07/01/2017, Additional history exists DTaP/Tdap/Td Vaccine (9 - Td or Tdap) 11/07/2027 11/06/2017, 08/14/2016, 01/23/1999, Additional history exists Hepatitis B Screening Completed 02/24/2002 , 10/21/2001, 09/14/2001 Pneumococcal vaccine <65 Aged Out No longer eligible based on patient's age to complete this topic Medical Devices Implanted Type Area Mica Machine Operator Device Identifier Shelf Expiration Date Model / Serial / Lot [employer] Srf-485 Natrelle Inspira Smooth Shell Surface Full Profile Implant 485cc - [id number] - [id number] Implanted:Qty: 1 on 04/07/2018 by Adrian Koenig MD at [facility] Breast [employer] [id number] 11/03/2022 SRF- 485 / [id number] / [id number] Description:NO CHARGE PROVID ED BY THE SURGEON [employer] Srf-560 Natrelle Inspira Smooth Shell Surface Full Profile Implant 560cc - [id number] - [id number] Implanted:Qty: 1 on 04/07/2018 by Adrian Koenig MD at [facility] Breast [employer] [id number] 12/23/2022 [place] [id number] / [id number] / [id number] Description:NO CHARGE PROVID ED BY THE SURGEON Insurance * Guarantor: ADRY OBANDO Account Type Relation to Patient Date of Phone Billing Address Personal/Family 1985 [address] [facility] ANTH ACCESS CHOICE Advance Directives For more information, please contact: [phone] * Full Code (Latest Code Status on File) Date Activated Date Inactivated Comments 04/07/2018 3:54 PM 04/08/2018 1:37 PM Care Teams Talent Coordinator Relationship Specialty Start Date End Date Naveen Whittaker MD PCP - General 08/05/19 Pari Gallegos DO [address] [place] [address] Consulting Physician Obstetrics and Gynecology 04/08/23
--- OUTSIDE RECORDS SUMMARY | 2025-06-12 08:09 | XMS_ITS | Encounter Summary ---
Author Organization [facility] Healthcare Address [address] [place] [id number] Care Team Providers Care Scalp Treatment Operator Name Role Phone Naveen Whittaker MD Primary Care Provider + Naveen Whittaker MD Primary Care Provider + Pari Gallegos DO Unavailable [phone] Encounter Details Date Type Department Care Team (Late st Contact Info) Description 04/09/2018 Documentation [facility] Case Management [address] [place] [address] Matilde Nogueira RN Social History Tobacco Use Types Packs/Day Years Used Date Smoking Tobacco: Never Smokeless Tobacco: Never Alcohol Use Standard Drinks/Week Comments Yes 0 (1 standard drink = 0.6 oz pur e alcohol) 1x year Comments No Sex and Gender Information Value Date Recorded Sex Assigned at Not on file 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
[2025-06-12 08:17] VITALS: BP 139/78; PULSE 102; RESP 20; TEMP 37.1; O2SAT 100
--- NOTE | 2025-06-12 08:30 | ED_ITS ---
HPI - URI/Sore Throat General Chief Complaint: Upper Respiratory Infection Stated Complaint: Cough Time Seen by Provider: 06/12/25 08:15 Source: patient and RN notes reviewed Mode of arrival: ambulatory Limitations: no limitations History of Present Illness HPI Narrative: 40-year-old female presents Express Care complaining of cough for 2 weeks. Patient said she please see my at a sore throat in the beginning of her symptoms. Hours patient states she primarily has a cough will not go away. Patient reports that is productive at times and nonproductive. Patient says she goes in coughing fits throughout the day, she says it is worse at night when she is lying flat. Patient reports tactile fevers the last couple days as well. Patient denies any body aches, chills, nausea, vomiting, diarrhea, chest pain, shortness of breath, or any other upper respiratory symptoms. Patient is taking bwhp-[id number] cough medicine without relief. Patient does not smoke. Patient denies any significant past medical history. Related Data Allergies Allergy/AdvReac Type Severity Reaction Status Date / Time Sulfa (Sulfonamide Allergy Unknown Unknown Verified 06/12/25 08:13 Antibiotics) Review of Systems Review of Systems: CONSTITUTIONAL: Positive for tactile fevers. Negative for body aches, chills, or sweats. EYES: Denies visual changes, redness, or discharge. ENT: Denies rhinorrhea, congestion, sore throat, or otalgia. CARDIOVASCULAR: Denies chest pain, palpitations, or edema. RESPIRATORY: Positive for cough. Negative for wheezing or dyspnea. GASTROINTESTINAL: Denies abdominal pain, nausea, vomiting, or diarrhea. GENITOURINARY: Denies dysuria or hematuria. SKIN: Denies rash or itching. MUSCULOSKELETAL: Denies back pain, joint pain, or myalgia. NEUROLOGIC: Denies headache, numbness, or weakness. PSYCHIATRIC: Denies anxiety or depression. All other systems reviewed are negative, except as documented in HPI. PMFSH Social History Social History Smoking status: Never smoker Alcohol intake: never Comments At the time of my signature, I reviewed and agree with the nursing past medical, surgical, social, and family history. There is no relevant family history pertinent to the patient complaint. Exam Narrative: GENERAL: This is a well-nourished, well-developed adult, in no apparent distress. They are non ill-appearing, nontoxic appearing. HEAD: normocephalic, atraumatic. EYES: Sclera clear/white. Conjunctiva normal. Vision is grossly intact. Extraocular movements intact EARS: External ears normal, auditory canals clear and without drainage, TMs normal without perforation. Hearing grossly intact. NOSE: External nose normal with no obvious nasal discharge, nasal turbinates erythemic without swelling, no rhinorrhea. THROAT: Mucous membranes moist, posterior pharynx edematous, without erythema, no exudate Uvula midline. Postnasal drip present. NECK: Neck supple, non-tender without lymphadenopathy, masses or thyromegaly. CARDIOVASCULAR: Regular rate and rhythm without murmurs, gallops, or rubs. RESPIRATORY: Clear to auscultation. Breath sounds equal bilaterally. No wheezes, rales, or rhonchi. SKIN: warm, Dry, intact with no suspicious lesions or rash, good texture and turgor. NEURO: awake, alert, and oriented to person, place and time. There were no obv ious focal neurologic abnormalities. EXTREMITIES: No joint tenderness, effusion, or edema noted. BACK: Nontender without deformity. No CVA tenderness. Course Course Emergency Course: Portions of this record may have been created with voice recognition software Level of Care: Express Care Visit Vital Signs Vital signs: Vital Signs Temperature 98.8 F 06/12/25 08:08 Pulse Rate 102 H 06/12/25 08:08 Respiratory Rate 20 06/12/25 08:08 Blood Pressure 139/78 06/12/25 08:08 Pulse Oximetry 100 06/12/25 08:08 Oxygen Delivery Room Air 06/12/25 08:08 Temperature 98.0 F 06/12/25 08:17 Pulse Rate 90 06/12/25 08:17 Respiratory Rate 18 06/12/25 08:17 Blood Pressure 125/83 06/12/25 08:17 Pulse Oximetry 100 06/12/25 08:17 Oxygen Delivery Room Air 06/12/25 08:17 Reviewed MDM - URI/Sore Throat MDM Narrative Medical decision making narrative: Patient likely has a bronchitis. Given severity of her symptoms will give her a course of prednisone and along with benzonatate tablets for cough. Since patient been having a paroxysmal cough for greater 2 weeks will treat with azithromycin. Discussed physical exam findings. Advised supportive measures and signs/symptoms to go to the ER. Pt is appropriate for outpt treatment and f/u. Differential Diagnosis Differential diagnosis: Likely upper respiratory infection, sinusitis, viral infection and bronchitis Critical Care Time Critical Care Time Critical Care Time: No Discharge Plan Discharge Clinical Impression: Bronchitis Cough Qualifiers: Cough type: acute Qualified Code(s): R05.1 - Acute cough Patient Disposition: Home Condition: Stable Instructions: Antibiotic Form, Acute Bronchitis (ED) Additional Instructions: Take azithromycin as directed, take with food Take prednisone as directed, take in the morning with food. Use benzonatate tablets as needed for cough. Recommend Flonase spray, Zyrtec or Claritin as needed for congestion. Follow instructions on the bottle. Tylenol and ibuprofen as needed for pain or fevers. Follow instructions on the bottle. Symptomatic treatment includes: rest, fluids, and increase humidity of the air at home. Follow up with your primary care provider 3-5 days Go to the ER for worsening symptoms, breathing problems, chest pain, vomiting, fevers, weakness, lethargy, confusion, or any serious concerns. Patient Language: Hebrew Prescriptions: New prednisone 20 mg tablet 40 mg PO DAILY 5 Days Qty: 10 0RF benzonatate 200 mg capsule 200 mg PO TID PRN (Reason: cough) Qty: 20 0RF azithromycin 250 mg tablet See Rx Instructions .ROUTE .COMPLEX Qty: 6 0RF Rx Instructions: For 250 mg dose pack: take 500 mg today (day 1), then 250 mg for 4 days (days 2-5) Follow-up/Referrals: Andrew,Radha Raymundo, [facility] [Primary Care Provider, Unknown] Time of Disposition: 08:24
== END 2025-06-12 08:28 | disposition home or self-care (01) ==
PROVIDERS: PCP Nurse Practitioner Family
DX: J40 Bronchitis, not specified as acute or chronic (principal); R05.1 Acute cough
CPT/HCPCS: 99203; G0463